=== PATIENT | male | born 1990 | race Caucasian/White ===

== ENCOUNTER → 2020-01-31 | Outpatient (CLI) | payer OTHER ==
--- NOTE | 2020-01-31 07:50 | US ---
EXAMINATION TYPE: US abdomen complete DATE OF EXAM: 01/31/2020 COMPARISON: 07/17/2015 CLINICAL HISTORY: R10.9 Abd pain. RUQ pain, nausea after eating EXAM MEASUREMENTS: Liver Length: 20.1 cm Gallbladder Wall: 0.2 cm CBD: 0.4 cm Spleen: 14.5 cm Right Kidney: 11.1 x 6.4 x 6.9 cm Left Kidney: 11.7 x 5.2 x 6.4 cm Pancreas: wnl Liver: Enlarged. There is increased echogenicity of the hepatic parenchyma with diminished visualiza tion of the portal triads most commonly relating to hepatic steatosis and limiting evaluation for und erlying hepatic masses. Probable focal fatty sparing seen near the gallbladder fossa, a typical locat ion for focal fatty sparing. Gallbladder: sludge noted with no obvious stones Evidence for sonographic Martinez's sign: YES CBD: wnl Spleen: enlarged Right Kidney: wnl Left Kidney: wnl Upper IVC: wnl Abd Aorta: wnl The intrahepatic portion of the IVC and proximal abdominal aorta are within normal limits. There is no evidence of cholelithiasis. Common bile duct is unremarkable. The visualized portions of the greene creas are homogenous. The spleen is unremarkable. Kidneys are symmetric and free of hydronephrosis. No renal lesions are seen. IMPRESSION: 1. Hepatosplenomegaly. Sonographic findings most commonly related to hepatic steatosis. Correlate wit h liver function tests. Probable focal fatty sparing near the gallbladder fossa. 2. Biliary sludge without sonographic evidence of acute cholecystitis. The patient does note a positi ve sonographic Martinez sign and therefore HIDA scan with CCK could be performed to evaluate for biliar y dyskinesia or chronic cholecystitis.
== END | disposition home or self-care (01) ==
LOC: RADUSWWP 06:40
PROVIDERS: ATTEND Family Medicine
DX: R16.2 Hepatomegaly with splenomegaly, not elsewhere classified (principal); K83.8 Other specified diseases of biliary tract
CPT/HCPCS: 76700

== ENCOUNTER → 2020-02-06 | Outpatient (CLI) | payer OTHER ==
--- NOTE | 2020-02-06 08:53 | NM ---
EXAMINATION TYPE: NM hepatobiliary w EF DATE OF EXAM: 02/06/2020 COMPARISON: Ultrasound abdomen January 31, 2020. HISTORY: Abdominal pain not further specified per order. Patient states epigastric pain with diminish ed appetite heartburn and reflux and nausea. TECHNIQUE: After the intravenous administration of 4.8 mCi Tc 99m Mebrofenin hepatobiliary scintigrap hy is performed. Immediate images post injection. FINDINGS: There is satisfactory initial accumulation of tracer by the liver. The gallbladder is visualized wit hin 15 minutes. The small bowel activity is not well identified even after 60 minutes. At one hour 8 ounces of oral ensure plus is given to mimic CCK and gallbladder ejection fraction is calculated at 66 %, in the normal range. Therefore there is no scintigraphic evidence of cystic or common bile du ct obstruction to suggest acute cholecystitis or gallbladder dyskinesia. IMPRESSION: Exam is within normal limits.
== END | disposition home or self-care (01) ==
LOC: RADNMMAIN 06:38
PROVIDERS: ATTEND Family Medicine
DX: R10.9 Unspecified abdominal pain (principal)
CPT/HCPCS: 78226; A9537

== ENCOUNTER → 2021-06-16 | Outpatient (CLI) | payer OTHER ==
--- NOTE | 2021-06-16 11:54 | CT ---
EXAMINATION TYPE: CT abdomen pelvis wo con DATE OF EXAM: 06/16/2021 COMPARISON: None HISTORY: Abdominal pain CT DLP: 979 mGycm Automated exposure control for dose reduction was used. TECHNIQUE: Helical acquisition of images was performed from the lung bases through the pelvis. FINDINGS: LUNG BASES: No significant abnormality is appreciated. LIVER/GB: Liver is diffusely low in attenuation compatible with fatty infiltration and appears to be enlarged measuring 25 cm correlate for hepatomegaly. Areas of increased density within the liver like ly represent focal fatty sparing. No gallstones. PANCREAS: No significant abnormality is seen. SPLEEN: No significant abnormality is seen. ADRENALS: No significant abnormality is seen. KIDNEYS: No significant abnormality is seen. ADENOPATHY: None visualized. OSSEOUS STRUCTURES: Severe degenerative disc disease L4-L5 with bilateral spondylolysis and grade 1 anterolisthesis with bilateral foraminal encroachment. BOWEL: No significant abnormality is seen. OTHER: Small fat-containing bilateral inguinal hernia. Small amount of fluid in the scrotal sac. IMPRESSION: 1. Hepatomegaly correlate for hepatic steatosis or hepatocellular disease. 2. Small amount fluid incidentally noted within the scrotal sac could be associated with hydroceles c orrelate clinically.
== END | disposition home or self-care (01) ==
LOC: RADCTMAIN 11:12
PROVIDERS: ATTEND Family Medicine
DX: R10.32 Left lower quadrant pain (principal); R16.0 Hepatomegaly, not elsewhere classified
CPT/HCPCS: 74176

== ENCOUNTER 2021-07-04 07:36 | Day surgery (SDC) | payer OTHER ==
[2021-07-02 12:57] VITALS: BMI 35.7
[~2021-07-04 07:36] MED LIST: LACTATED RINGERS 1,000 ML IV SCH; LIDOCAINE 1% (10MG/ML) FOR IV START INTRADERMA PRN
[2021-07-04 08:15] VITALS: TEMP 97.6
[2021-07-04] MEDS ORDERED: LACTATED RINGERS 1,000 ML IV ONE (08:15)
[2021-07-04] MEDS ORDERED: PROPOFOL 10 MG/ML 20 ML VIAL IV ONE (09:03)
[2021-07-04] MEDS ORDERED: LIDOCAINE 1% INJ 10MG/ML (20 ML MDV) ONE (09:03)
--- NOTE | 2021-07-04 09:34 | P.PCN ---
Date of Procedure: 07/04/21 Procedure(s) Performed: Brief history: Patient is a pleasant 31-year-old white male scheduled for an elective upper endoscopy as well as colonoscopy as a part of evaluation of GERD/epigastric pain and chronic diarrhea for the last 1 year duration. He has bowel movements anywhere from 6-7 a day which are loose to watery in consistency. No blood or mucus in the stool. Procedure performed: Esophagogastroduodenoscopy with biopsy Colonoscopy with biopsy Preoperative diagnosis: GERD/epigastric pain Chronic diarrhea of 1 year duration Anesthesia: MAC Procedure: After informed consent was obtained from the patient was brought into the endoscopy unit and IV sedation was administered by anesthesia under continuous monitoring. Initially upper endoscopy was done. The Olympus GF 160 video endoscope was inserted inserted into the mouth and esophagus intubated without any difficulty and was gradually advanced into the stomach and duodenum and carefully examined. The bulb and second part of the duodenum appeared normal. Biopsies were done from the duodenum to rule out celiac disease. The scope was then withdrawn into the stomach adequately insufflated with air and upon careful examination the antrum had mild gastritis and biopsies were done from this area. The body, cardia and fundus appeared normal. The scope was then withdrawn into the esophagus. The GE junction was located at 40 cm to the incisors. There were linear erosions in the distal esophagus consistent with LA grade B reflux esophagitis. Rest of the esophagus appeared normal. Patient tolerated the procedure well. At this time the patient continued to remain sedation. Initial digital rectal examination was normal. Olympus CF 160 video colonoscope was then inserted into the rectum and gradually advanced to the cecum without any difficulty. Careful examination was performed as the scope was gradually being withdrawn. The prep was excellent. The cecum, ascending colon, transverse colon, descending colon, sigmoid colon and rectum appeared normal. Retroflexion was performed in the rectum and no lesions were noted. random biopsies were done from ascending and descending colon to rule out microscopic/collagenous colitis. Patient tolerated the procedure well. Impression: 1. Upper endoscopy revealed mild antral gastritis and LA grade B reflux esophagitis 2. Colonoscopy was within normal limits with no evidence of colitis or colorectal neoplasia Recommendations: Findings of this examination were discussed with the patient as well as his family. He was advised to follow with the biopsy results and he'll be seen in office in one month.
[2021-07-04 09:39] VITALS: RESP 16
[2021-07-04 09:56] VITALS: BP 136/79; PULSE 65
== END 2021-07-04 10:08 | disposition home or self-care (01) ==
LOC: ORWHC2ENDO 07:36
PROVIDERS: ATTEND Internal Medicine Gastroenterology
DX: K29.50 Unspecified chronic gastritis without bleeding (principal); K52.9 Noninfective gastroenteritis and colitis, unspecified; K21.00 Gastro-esophageal reflux disease with esophagitis, without bleeding; Z87.891 Personal history of nicotine dependence
CPT/HCPCS: 45380; 43239; 88305; J2001; J2704